=== PATIENT | female | born 1940 | race Two or more races ===

== ENCOUNTER 2025-03-24 13:00 | Emergency (ER) | payer OTHER ==
[~2025-03-24] VITALS: Ht 180.3 cm; Wt 63.5 kg
[2025-03-24] MEDS ORDERED: MEDI-MECLIZINE25 MG (14:45)
[2025-03-24] MEDS ORDERED: CLONAZEPAM1 MG PO (14:45)
[2025-03-24] MEDS ORDERED: PLAVIX75 MG PO (14:46)
[2025-03-24] MEDS ORDERED: ZYRTEC10 M3 PO (14:46)
[2025-03-24] MEDS ORDERED: FOLIC ACID1 MG PO (14:46)
[2025-03-24] MEDS ORDERED: DICLOFENAC-MIS1 EAC1 PO (14:47)
[2025-03-24] MEDS ORDERED: ROSUVASTATIN CAL5 MG PO (14:48)
[2025-03-24] MEDS ORDERED: HYDRALAZINE HCL25 MG PO (14:49)
[2025-03-24] MEDS ORDERED: ENALAPRILAT DIHYDRATE 1.25 MG/ML VIAL IV ONE ×2 (15:15→15:47)
[2025-03-24 16:07] LABS: BASO % 0.6 % (0.1-1.2); EOS # 0.04 (0.04-0.54); EOS % 0.4 % (0.7-7.0); LYMPH # 1.83 (1.18-3.74); LYMPH % 19.7 % (19.3-53.1); MEAN PLATELET VOLUME 11.10 fl (9.4-12.4); MONO # 0.72 (0.24-0.82); MONO % 7.8 % (4.7-12.5); NEUT # 6.59 (1.56-6.13); NEUT % 71.2 % (34.0-71.1); RED CELL DISTRIBUTION WIDTH 15.5 % (11.6-14.4)
[2025-03-24 16:32] LABS: INR 1.06
[2025-03-24 16:37] LABS: BUN CREA RATIO 29.0 (7.0-25.0); CREATININE SERUM 0.62 mg/dL (0.55-1.02); GFR 91.27; GLUCOSE FASTING 131.0 mg/dL (65-100); OSMOLALITY SERUM 283.0 MOSM/KG (275-295)
== END 2025-03-24 22:17 | disposition home or self-care (01) ==
LOC: ER 13:01
PROVIDERS: General Practice
DX: I16.9 Hypertensive crisis, unspecified (principal); I10 Essential (primary) hypertension; E16.1 Other hypoglycemia; Z88.6 Allergy status to analgesic agent; Z91.018 Allergy to other foods